=== PATIENT | male | born 1960 | race African-American/Black ===

== ENCOUNTER 2018-08-08 08:56 | Observation (INO) | payer BC ==
[2018-08-08] MEDS: SOD CHLORIDE 0.9% 1,000 ML IV ×4 (09:24→22:03)
[2018-08-08] MEDS: LEVETIRACETAM 1000 MG (PMX) 100 ML IVPB (09:25)
[2018-08-08 09:36] LABS: ADD MAN DIFF? NO
[2018-08-08 09:37] LABS: WHITE BLOOD COUNT 4.9 10^3/ul (4.8-10.8)
[2018-08-08 09:37] LABS: BASOPHILS % 0.4 % (0.0-2.0); EOSINOPHILS % 0.2 % (0.0-7.0); HEMATOCRIT 40.6 % (42.0-52.0); HEMOGLOBIN 13.8 g/dl (14.0-18.0); LYMPHOCYTES # 1.6 10^3/ul (0.8-2.9); MEAN CORPUSCULAR VOLUME 88.3 fl (82.0-101.0); MEAN PLATELET VOLUME 10.2 fl (7.4-10.4); MONOCYTE # 0.3 10^3/ul (0.3-0.9); MONOCYTES % 6.7 % (0.0-11.0); NEUTROPHILS % 60.3 % (39.0-77.0); PLATELET COUNT 197 10^3/UL (140-415); RED CELL DISTRIBUTION WIDTH 14.1 % (11.5-14.5)
[2018-08-08 09:57] LABS: INR 0.89; PROTIME 12.1 Sec (11.9-14.9); PT RATIO 0.9
[2018-08-08 09:58] LABS: PARTIAL THROMBOPLASTIN TIME 23.9 Sec (23.0-35.0)
[2018-08-08 10:10] LABS: ALANINE AMINOTRANSFERASE 21 IU/L (13-69); ALBUMIN 4.7 g/dl (3.3-4.9); ALBUMIN/GLOBULIN RATIO 1.27; ALKALINE PHOSPHATASE 64 IU/L (42-121); ANION GAP 17 (5-13); ASPARTATE AMINO TRANSFERASE 34 IU/L (15-46); BILIRUBIN,INDIRECT 0.4 mg/dl (0-1.1); BILIRUBIN,TOTAL 0.4 mg/dl (0.2-1.3); BLOOD UREA NITROGEN 9 mg/dl (7-20); CALCIUM 8.7 mg/dl (8.4-10.2); CARBON DIOXIDE 27 mmol/L (21-31); CHLORIDE 100 mmol/L (97-110); CREATININE 0.99 mg/dl (0.61-1.24); Estimated GFR > 60 mL/min (>60); GLUCOSE 120 mg/dl (70-220); SODIUM 144 mmol/L (135-144); TOTAL PROTEIN 8.4 g/dl (6.1-8.1)
[2018-08-08] MEDS: LORAZEPAM 2 MG INJ IV ×2 (10:28→23:34)
[2018-08-08 10:35] LABS: TROPONIN-I < 0.012 ng/ml (0.000-0.120)
[2018-08-08] MEDS ORDERED: SOD CHLORIDE 0.9% 1,000 ML IV (12:04)
[2018-08-08] MEDS ORDERED: ONDANSETRON 4 MG INJ IV ×2 (12:30→15:00)
[2018-08-08] MEDS ORDERED: ACETAMINOPHEN 325 MG TAB PO ×2 (12:30→15:00)
[2018-08-08] MEDS ORDERED: BISACODYL (EC) 5 MG TAB PO (15:00)
[2018-08-08] MEDS ORDERED: LORAZEPAM 2 MG INJ IV (15:00)
[2018-08-08] MEDS ORDERED: DOCUSATE SODIUM 100 MG CAP PO (15:00)
[2018-08-08] MEDS ORDERED: NACL 0.9% 3 ML SYG IV (15:00)
[2018-08-08] MEDS ORDERED: morphine 2 MG INJ IV (15:00)
[2018-08-08] MEDS ORDERED: HYDROCODONE/APAP (5/325) TAB PO (15:00)
[2018-08-08] MEDS ORDERED: MAGNESIUM HYDROXIDE 30ML CUP PO (15:00)
[2018-08-08 16:25] LABS: AMPHETAMINE/METHAMPHETAMINE Negative (NEGATIVE); BARBITURATES Negative (NEGATIVE); BENZODIAZEPINES Negative (NEGATIVE); CANNABINOIDS Negative (NEGATIVE); COCAINE Negative (NEGATIVE); OPIATES Negative (NEGATIVE)
[2018-08-08] MEDS: THIAMINE 100 MG TAB PO (18:04)
[2018-08-08] MEDS: LORAZEPAM 1 MG TAB PO (20:22)
[2018-08-08] MEDS: FAMOTIDINE 20 MG INJ IV (20:22)
[2018-08-09] MEDS: SOD CHLORIDE 0.9% 1,000 ML IV ×3 (02:31→16:01)
[2018-08-09 06:19] LABS: ADD MAN DIFF? NO
[2018-08-09 06:23] LABS: WHITE BLOOD COUNT 6.3 10^3/ul (4.8-10.8)
[2018-08-09 06:23] LABS: BASOPHILS % 0.3 % (0.0-2.0); EOSINOPHILS % 0.5 % (0.0-7.0); HEMATOCRIT 35.6 % (42.0-52.0); HEMOGLOBIN 11.8 g/dl (14.0-18.0); LYMPHOCYTES # 1.5 10^3/ul (0.8-2.9); LYMPHOCYTES % 23.7 % (15.0-51.0); MEAN CORPUSCULAR HEMOGLOBIN 29.9 pg (29.0-33.0); MEAN CORPUSCULAR HGB CONC 33.1 g/dl (32.0-37.0); MEAN CORPUSCULAR VOLUME 90.4 fl (82.0-101.0); MONOCYTE # 0.5 10^3/ul (0.3-0.9); MONOCYTES % 7.2 % (0.0-11.0); NEUTROPHIL # 4.3 10^3/ul (1.6-7.5); PLATELET COUNT 131 10^3/UL (140-415); RED BLOOD COUNT 3.94 10^6/ul (4.70-6.10); RED CELL DISTRIBUTION WIDTH 13.9 % (11.5-14.5)
[2018-08-09 06:38] LABS: HEMOGLOBIN A1C 5.5 % (0-5.9)
[2018-08-09 06:47] LABS: ALANINE AMINOTRANSFERASE 23 IU/L (13-69); ALBUMIN 3.8 g/dl (3.3-4.9); ALKALINE PHOSPHATASE 51 IU/L (42-121); ANION GAP 9 (5-13); ASPARTATE AMINO TRANSFERASE 30 IU/L (15-46); BILIRUBIN,INDIRECT 0.8 mg/dl (0-1.1); BILIRUBIN,TOTAL 0.8 mg/dl (0.2-1.3); BLOOD UREA NITROGEN 10 mg/dl (7-20); CALCIUM 8.3 mg/dl (8.4-10.2); CARBON DIOXIDE 29 mmol/L (21-31); CHLORIDE 101 mmol/L (97-110); CREATININE 0.87 mg/dl (0.61-1.24); Estimated GFR > 60 mL/min (>60); GLUCOSE 92 mg/dl (70-220); MAGNESIUM 1.7 mg/dl (1.7-2.5); PHOSPHORUS 3.9 mg/dl (2.5-4.9); POTASSIUM 3.7 mmol/L (3.5-5.1); SODIUM 139 mmol/L (135-144); TOTAL PROTEIN 6.5 g/dl (6.1-8.1)
[2018-08-09] MEDS: LORAZEPAM 1 MG TAB PO ×3 (08:55→20:45)
[2018-08-09] MEDS: FAMOTIDINE 20 MG INJ IV ×2 (08:55→20:44)
[2018-08-09] MEDS: AMIODARONE 200 MG TAB PO ×2 (08:55→20:45)
[2018-08-09] MEDS: THIAMINE 100 MG TAB PO (08:55)
[2018-08-10] MEDS: SOD CHLORIDE 0.9% 1,000 ML IV (05:36)
[2018-08-10] MEDS: LORAZEPAM 1 MG TAB PO ×2 (08:36→13:00)
[2018-08-10] MEDS: FAMOTIDINE 20 MG INJ IV (08:36)
[2018-08-10] MEDS: THIAMINE 100 MG TAB PO (08:36)
[2018-08-10] MEDS: AMIODARONE 200 MG TAB PO (08:37)
[2018-08-10] MEDS: ENOXAPARIN 40 MG/0.4 ML SYG SC (08:41)
== END 2018-08-10 16:20 | disposition home or self-care (01) ==
LOC: E/R 08:56 → 6WM 12:05
DX: F10.229 Alcohol dependence with intoxication, unspecified (principal); Y90.8 Blood alcohol level of 240 mg/100 ml or more; I48.91 Unspecified atrial fibrillation; I10 Essential (primary) hypertension; I48.2 Chronic atrial fibrillation
CPT/HCPCS: 36415; 70450; 71045; 80053; 80307; 83036; 83735; 84100; 84443; 84484; 85025; 85610; 85730; 93005; 95819; 96374; 96375; 99285-25; G0378